=== PATIENT | female | born 1935 | race Caucasian/White ===

== ENCOUNTER 2016-07-03 22:49 | Inpatient (IN) | payer MEDICARE, OTHER ==
[2016-07-03] MEDS ORDERED: IPRATROPIUM/ALBUTEROL 0.5-2.5 MG/3 ML AMPUL NEB ONE (22:57)
[2016-07-03] MEDS: MAGNESIUM SULFATE/D5W 100 ML IV SCH ×2 (23:02→23:22)
--- NOTE | 2016-07-03 23:14 | ER Document Report ---
ED General - General Chief Complaint: Shortness Of Breath Stated Complaint: DIFFICULTY BREATHING Time Seen by Provider: 07/03/16 22:56 Notes: Patient is an 81-year-old female presents for complaint of difficulty breathing. Patient has a history of lung cancer as well as COPD. Patient is working very hard to breathe and unable to speak. No history is obtainable from her. Paramedics gave her Solu-Medrol as well as DuoNeb treatments. TRAVEL OUTSIDE OF THE [place] IN LAST 30 DAYS: No - Related Data Allergies/Adverse Reactions: Sulfa (Sulfonamide Antibiotics) Allergy (Verified 07/04/16 00:47) Past Medical History - Social History Smoking Status: Former Smoker Frequency of alcohol use: None Drug Abuse: None Family History: Reviewed & Not Pertinent Review of Systems - Review of Systems -: Yes ROS unobtainable due to patient's medical condition - Patient is unable to speak due to distress. Physical Exam - Vital signs Vitals: Temp Pulse Resp BP Pulse Ox 98.5 F 142 H 30 H 171/85 H 94 07/03/16 22:52 07/03/16 22:52 07/03/16 22:52 07/03/16 22:52 07/03/16 22:52 - Notes Notes: General Appearance: Well nourished, alert, cooperative, moderate to severe acute distress, no obvious discomfort. Vitals: reviewed, See vital signs table. Head: no swelling or tenderness to the head Eyes: PERRL, EOMI, Conjuctiva clear Mouth: No decreasd moisture Throat: No tonsillar inflammation, No airway obstruction, No lymphadenopathy Neck: Supple, no neck tenderness, No thyromegaly Lungs: Diffuse wheezing, No rales, diffuse rhonci, No accessory muscle use, fair air exchange bilaterally. Heart: Tachycardic rate, Regular rythm, No murmur, no rub Abdomen: Normal BS, soft, No rigidity, No abdominal tenderness, No guarding, no rebound, no abdominal masses, no organomegaly Extremities: strength 5/5 in all extremities, good pulses in all extremities, no swelling or tenderness in the extremities, no edema. Skin: warm, dry, appropriate color, no rash Neuro: Awake and alert. Does follow commands. Is able to move her extremities without difficulty. Course - Re-evaluation Re-evalutation: 07/03/16 23:39 Patient's daughter is now at bedside. I did speak to her at length about the possibility of need for intubation. I did talk to her about whether or not patient is DO NOT RESUSCITATE full code. Current medications full code. I informed her that the patient is intubated who is a chance we would not be able to wean her off the ventilator being her history of poor lung disease. Also informed her that the patient is already fatigued appearing and dizziness working hard to breathe and therefore she may without intubation. The daughter seems understanding of this and requests to have time to speak with her brother about what their wishes are for the patient. 07/04/16 00:20 I spoke with the patient's son as well. After speaking with the patient's son he wants to speak with the daughter again. Patient's is like asking back with a CO2 of 101. We will repeated to see if the BiPAP is helping this at all. Patient's troponin is also can back elevated. Patient also appears to be in atrial flutter on the monitor and now. She is also developing some hypotension. I will give her IV fluid bolus. I will repeat EKG to confirm that this is flutter. Once all this comes back I will try and speak with family to see exactly how far they want to take her care at this time. 07/04/16 00:57 Patient's ABGs improving. She is now much more awake. She is actually talking and answering questions appropriate. Her respiratory status is improving. I have not yet given her Cardizem for the atrial flutter because her blood pressure still only in the 90s systolic. We'll give her another fluid bolus to see if we can increase her blood pressure prior to trying the Cardizem. At this time I would like to avoid cardioversion if possible as I fear the patient may not tolerate sedation well to be cardioverted. 07/04/16 00:59 07/04/16 01:51 Patient continues to improve. Her heart rate is slowly improving. She continues to go between since tachycardia, A. fib, and a flutter on a monitor. Her heart rate is now more in the 1 teens. This is an improvement from when she was in the 140s earlier. Her blood pressure is improved after the fluid boluses. She does have an elevated troponin. I did talk to the patient's daughter at length about this. I informed her that this most likely is signs of some damage to the heart which is probably related to her early hypoxia. I told her could also be caused by her heart attack this is less likely. I informed her that definitive test to rule this out would be a heart catheter which would have to transfer. I did explain the procedure to her and the risks of it. Patient's daughter says that the patient would not want something like that done. They prefer not to have a heart catheter and preferred to not be transferred out. I think that is an appropriate decision at this time being that she or has severe underlying disease and a cardiac stent with most likely not improve her quality of life or prolong her life a significant amount of time. 07/04/16 02:50 - Vital Signs Vital signs: Temp Pulse Resp BP Pulse Ox 98.5 F 142 H 28 H 126/72 H 100 07/03/16 22:52 07/03/16 22:52 07/04/16 05:31 07/04/16 05:31 07/04/16 05:31 - Laboratory Result Diagrams: 07/03/16 23:26 07/03/16 23:26 Laboratory results interpreted by me: 07/03/16 07/03/16 07/03/16 23:26 23:26 23:26 RBC 3.33 L Hgb 8.8 L Hct 29.0 L MCH 26.5 L MCHC 30.5 L RDW 19.7 H VBG pH 7.17 L* VBG pCO2 101.8 H* VBG HCO3 36.5 H Sodium 132.7 L Potassium 5.7 H Chloride 89 L Carbon Dioxide 32 H BUN 30 H Est GFR ( Amer) 55 L Est GFR (Non-Af Amer) 45 L Glucose 184 H AST 54 H Alkaline Phosphatase 128 H 07/04/16 00:25 RBC Hgb Hct MCH MCHC RDW VBG pH 7.26 L VBG pCO2 73.5 H* VBG HCO3 32.5 H Sodium Potassium Chloride Carbon Dioxide BUN Est GFR ( Amer) Est GFR (Non-Af Amer) Glucose AST Alkaline Phosphatase - EKG Interpretation by Me Additional EKG results interpreted by me: 07/03/16 23:13 EKG is reviewed and interpreted by me. EKG shows sinus tachycardia with rate [address] segment elevation or depression. No T-wave inversions. VA interval, QRS duration are within normal range. QTC intervals prolonged. No old EKG available for comparison at this time. 07/04/16 00:53 EKG #2 is reviewed and interpreted by me. EKG shows a flutter with 2:[address] segment elevation or depression. Chart are as duration QTC intervals are within normal range. - Transfer of Care Notes: 07/04/16 05:45 Patient's breathing and blood gas to improve with BiPAP. As my discussion with the daughter and son no like to try to avoid intubation as the patient has very poor lung function and would be hard to wean off the ventilator if she was ever intubated. She does have elevated troponin. I did talk to the daughter about performing a cardiac catheter in transfer for that. I did talk to her about the procedure. At this time patient has multiple comorbid disease including end -stage cancer and therefore cardiac catheterization and intervention cardiac treatment most likely is appropriate. Daughter is understanding of this and agrees with this and does not want her to be transferred to an outside facility. I did speak with the hospitalist who agrees to admit the patient. Dictation of this chart was performed using voice recognition software; therefore, there may be some unintended grammatical errors. Discharge - Discharge Clinical Impression: Respiratory distress, Elevated troponin COPD (chronic obstructive pulmonary disease) Qualifiers: COPD type: COPD with acute exacerbation Qualified Code(s): J44.1 - Chronic obstructive pulmonary disease with (acute) exacerbation Pneumonia Qualifiers: Pneumonia type: due to unspecified organism Laterality: left Lung location: unspecified part of lung Qualified Code(s): J18.9 - Pneumonia, unspecified organism Atrial flutter Qualifiers: Atrial flutter type: unspecified Qualified Code(s): I48.92 - Unspecified atrial flutter Admitting Provider: Hospitalist Unit Admitted: [facility]
--- NOTE | 2016-07-03 23:40 | EKG REPORT ---
SEVERITY:- ABNORMAL ECG - A FLUTTER WITH 2:1 CONDUCTION MIKE, CONSIDER BIATRIAL ABNORMALITIES BORDERLINE LEFT AXIS DEVIATION LOW VOLTAGE IN FRONTAL LEADS NONSPECIFIC T ABNORMALITIES, INFERIOR LEADS ST ELEVATION, CONSIDER INFERIOR INJURY BORDERLINE PROLONGED QT INTERVAL : Confirmed by: Yariel Dominguez 03-Jul-2016 23:39:29
[2016-07-03] MEDS ORDERED: LORAZEPAM INJ 2 MG/1 ML VIAL IV ONE (23:42)
[2016-07-03] MEDS ORDERED: DOXYCYCLINE HYCLATE 100 MG TABLET PO ONE (23:42)
[2016-07-03 23:46] LABS: ABSOLUTE LYMPHOCYTES (AUTO) 2.6 10^3/uL (0.5-4.7); ABSOLUTE MONOCYTES (AUTO) 0.9 10^3/uL (0.1-1.4); ABSOLUTE NEUT (AUTO) 4.5 10^3/uL (1.7-8.2); BASOPHILS % (AUTO) 0.6 % (0-2); EOSINOPHILS % (AUTO) 0.4 % (0-6); HEMOGLOBIN 8.8 g/dL (12.0-15.5); HGB HCT DIFFERENCE -2.6; LYMPHOCYTES % (AUTO) 31.9 % (13-45); MEAN CORPUSCULAR HEMOGLOBIN 26.5 pg (27.0-33.4); MEAN CORPUSCULAR HGB CONC 30.5 g/dL (32.0-36.0); MEAN CORPUSCULAR VOLUME 87 fl (80-97); MONOCYTES % (AUTO) 10.9 % (3-13); RED BLOOD COUNT 3.33 10^6/uL (3.72-5.28); RED CELL DISTRIBUTION WIDTH 19.7 % (11.5-14.0); SEGMENTED NEUTROPHILS % (AUTO) 56.2 % (42-78); WHITE BLOOD COUNT 8.1 10^3/uL (4.0-10.5)
[2016-07-03 23:53] LABS: VENOUS BLOOD BASE EXCESS 5.8 mmol/L; VENOUS BLOOD HCO3 36.5 mmol/L (20-32)
[2016-07-03 23:56] LABS: VENOUS BLOOD PCO2 101.8 mmHg (35-63); VENOUS BLOOD PH 7.17 (7.30-7.42)
[2016-07-04 00:04] LABS: ALANINE AMINOTRANSFERASE 38 U/L (9-52); ALBUMIN 3.9 g/dL (3.5-5.0); ALKALINE PHOSPHATASE 128 U/L (38-126); ANION GAP 12 (5-19); ASPARTATE AMINO TRANSFERASE 54 U/L (14-36); BILIRUBIN,DIRECT 0.4 mg/dL (0.0-0.4); BILIRUBIN,TOTAL 0.4 mg/dL (0.2-1.3); BLOOD UREA NITROGEN 30 mg/dL (7-20); CALCIUM 9.4 mg/dL (8.4-10.2); CARBON DIOXIDE 32 mmol/L (22-30); CHLORIDE 89 mmol/L (98-107); CREATINE KINASE 46 U/L (30-135); CREATININE RESULT 1.15 mg/dL (0.52-1.25); GLUCOSE 184 mg/dL (75-110); POTASSIUM 5.7 mmol/L (3.6-5.0); SODIUM 132.7 mmol/L (137-145); TOTAL PROTEIN 7.6 g/dL (6.3-8.2)
[2016-07-04 00:14] LABS: CREATINE KINASE MB 1.98 ng/mL (<4.55)
[2016-07-04 00:17] LABS: TROPONIN I 0.101 ng/mL
[2016-07-04] MEDS ORDERED: PIPERACILLIN/TAZOBACTAM 3.375 GM VIAL IV ONE (00:18)
[2016-07-04] MEDS ORDERED: VANCOMYCIN HCL INJ 1000 MG VIAL IV ONE (00:19)
[2016-07-04 00:42] LABS: VENOUS BLOOD BASE EXCESS 4.2 mmol/L; VENOUS BLOOD HCO3 32.5 mmol/L (20-32); VENOUS BLOOD PH 7.26 (7.30-7.42)
[2016-07-04 00:44] LABS: VENOUS BLOOD PCO2 73.5 mmHg (35-63)
[2016-07-04] MEDS ORDERED: NORMAL SALINE 1000 ML 1,000 ML IV ONE ×3 (00:57→04:05)
[2016-07-04] MEDS ORDERED: GUAIFENESIN SYRP 200 MG/10 ML UDC PO PRN (04:15)
[2016-07-04] MEDS ORDERED: ACETAMINOPHEN 325 MG TABLET PO PRN (04:15)
[2016-07-04] MEDS ORDERED: LACTULOSE SYRUP 20 GM/30 ML UDCUP PO ONE (04:30)
[2016-07-04] MEDS ORDERED: HYDROCORTISONE SOD SUCCINATE INJ/PF 100 MG/2 ML SDV IV ONE (04:30)
[2016-07-04] MEDS ORDERED: SODIUM POLYSTYRENE SULFONATE 15 GM/60 ML PO ONE (04:30)
[2016-07-04] MEDS: HEPARIN SOD (PORCINE) 5,000 UNIT/ML 1 ML SYRINGE SUBCUT SCH ×3 (05:17→22:00)
[2016-07-04] MEDS: DILTIAZEM HCL 30 MG TABLET PO SCH ×3 (05:19→17:02)
--- NOTE | 2016-07-04 06:36 | PDOC H&P ---
History of Present Illness Admission Date/PCP: 07/04/16 04:15 Patient complains of: Shortness of breath History of Present Illness: KACEY HUANG is a 81 year old female with a past medical history of stage IV lung cancer without chemotherapy secondary to debility, COPD with home oxygen dependence. Brought to the emergency room with unclear duration of hypotension, atrial flutter and severe respiratory distress. Unable to provide history given acute on chronic respiratory failure. She is empirically started on BiPAP PCO2 of greater than 100. She started on empiric antibiotics and IV fluid challenge referred to the hospitalist for admission. Past Medical History Pulmonary Medical History: Reports: Chronic Obstructive Pulmonary Disease (COPD) , Other - Stage IV Lung cancer Malignancy Medical History: Reports: Lung Cancer - Stage IV lung cancer Past Surgical History Past Surgical History: Reports: Other - Unobtainable Social History Information Source: Relative, Emergency Med Personnel Lives with: Family Smoking Status: Former Smoker - Advance Directive Resuscitation Status: Full Code Family History Family History: Other - Unobtainable Parental Family History Reviewed: No - unobtainable Children Family History Reviewed: No Sibling(s) Family History Reviewed.: No Medication/Allergy Home Medications: Ascorbic Acid [Vitamin C 500 mg Tablet] 500 mg PO BID 07/04/16 Aspirin [Aspirin 81 mg Chewable Tablet] 81 mg PO DAILY 07/04/16 Atorvastatin Calcium [Lipitor 80 mg Tablet] 80 mg PO QHS 07/04/16 Atorvastatin Calcium [Lipitor 80 mg Tablet] 80 mg PO QHS 07/04/16 Bisacodyl [Women's Laxative] 5 mg PO HSP PRN 07/04/16 Carvedilol [Coreg 3.125 mg Tablet] 3.125 mg PO BID 07/04/16 Esomeprazole Magnesium [Nexium] 20 mg PO DAILY 07/04/16 Ferrous Sulfate [Ferrousul] 325 mg PO BID 07/04/16 Furosemide [Lasix] 20 mg PO DAILY 07/04/16 Lisinopril 10 mg PO DAILY 07/04/16 Nifedipine [Nifedipine ER] 30 mg PO DAILY 07/04/16 Sertraline HCl [Zoloft] 25 mg PO DAILY 07/04/16 Theophylline Anhydrous [Theophylline] 400 mg PO BID 07/04/16 Allergies/Adverse Reactions: Sulfa (Sulfonamide Antibiotics) Allergy (Verified 07/04/16 00:47) Review of Systems ROS unobtainable: Due to mental status - Severe respiratory distress Physical Exam Vital Signs: Temp Pulse Resp BP Pulse Ox 98.5 F 142 H 14 126/73 H 100 07/03/16 22:52 07/03/16 22:52 07/04/16 06:16 07/04/16 06:16 07/04/16 05:46 General appearance: PRESENT: severe distress, thin Head exam: PRESENT: atraumatic, normocephalic Eye exam: PRESENT: conjunctiva pink, EOMI, PERRLA. ABSENT: scleral icterus Ear exam: PRESENT: bleeding Mouth exam: PRESENT: moist, tongue midline Neck exam: ABSENT: carotid bruit, JVD, lymphadenopathy, thyromegaly Respiratory exam: PRESENT: accessory muscle use, crackles, prolonged expiratory phas, retraction, rhonchi, symmetrical, tachypnea. ABSENT: chest wall tenderness, stridor Cardiovascular exam: PRESENT: RRR. ABSENT: diastolic murmur, rubs, systolic murmur Pulses: PRESENT: normal dorsalis pedis pul GI/Abdominal exam: PRESENT: distended, hypoactive bowel sounds, normal bowel sounds, soft. ABSENT: guarding, mass, organolmegaly, rebound, tenderness Rectal exam: PRESENT: deferred Extremities exam: PRESENT: full ROM. ABSENT: calf tenderness, clubbing, pedal edema Neurological exam: PRESENT: altered, CN II-XII grossly intact, other - Obtunded. ABSENT: alert, awake, oriented to person Psychiatric exam: PRESENT: other - Obtunded. ABSENT: homicidal ideation, suicidal ideation Skin exam: PRESENT: dry, intact, warm. ABSENT: cyanosis, rash Results Impressions: Chest X-Ray 07/03/16 22:56 IMPRESSION: Left basilar airspace disease -effusion. Assessment & Plan - Diagnosis (1) Pneumonia Qualifiers: Pneumonia type: due to unspecified organism Laterality: left Lung location: unspecified part of lung Qualified Code(s): J18.9 - Pneumonia, unspecified organism Is this a current diagnosis for this admission?: YesPlan: Pneumonia care set, empiric antibiotics follow-up CBC, chemistry and blood culture (2) Atrial flutter Qualifiers: Atrial flutter type: unspecified Qualified Code(s): I48.92 - Unspecified atrial flutter Is this a current diagnosis for this admission?: YesPlan: Patient is on nifedipine at home will initiate IV Cardizem and transition to by mouth as tolerated (3) COPD (chronic obstructive pulmonary disease) Qualifiers: COPD type: COPD with acute exacerbation Qualified Code(s): J44.1 - Chronic obstructive pulmonary disease with (acute) exacerbation Is this a current diagnosis for this admission?: YesPlan: Complicated by end-stage lung cancer, flutter valve, incentive spirometry, albuterol and Atrovent, supplemental oxygen (4) Elevated troponin Is this a current diagnosis for this admission?: YesPlan: Complicated by the above obtain serial cardiac enzymes for trending though is not a candidate for invasive intervention - Time Time Spent: 50 to 70 Minutes - Inpatient Certification Medical Necessity: Need Close Monitoring Due to Risk of Patient Decompensation
[2016-07-04] MEDS: IPRATROPIUM/ALBUTEROL 0.5-2.5 MG/3 ML AMPUL NEB SCH ×3 (08:27→19:54)
[2016-07-04 09:02] LABS: CREATINE KINASE MB 5.39 ng/mL (<4.55)
[2016-07-04 09:07] LABS: TROPONIN I 0.166 ng/mL
[2016-07-04] MEDS: CEFTRIAXONE 1 GM/D5W RTU 50 ML IV SCH (09:53)
[2016-07-04] MEDS: GUAIFENESIN 600 MG TABLET.SA PO SCH ×2 (09:57→21:59)
[2016-07-04] MEDS: AZITHROMYCIN 500 MG in DEXTROSE 5%-WATER 250 ML IV SCH (10:27)
--- NOTE | 2016-07-04 13:10 | PDOC PROGRESS REPORT ---
Subjective Progress Note for:: 07/04/16 Subjective:: Complains of a productive cough. Physical Exam Vital Signs: Temp Pulse Resp BP Pulse Ox 98 F 138 H 24 H 122/74 98 07/04/16 11:51 07/04/16 11:51 07/04/16 11:59 07/04/16 11:51 07/04/16 11:59 Intake & Output 07/03/16 07/04/16 07/05/16 06:59 06:59 06:59 Weight 57.7 kg General appearance: PRESENT: mild distress Eye exam: PRESENT: conjunctiva pink. ABSENT: scleral icterus Mouth exam: PRESENT: moist, tongue midline Neck exam: ABSENT: JVD Respiratory exam: PRESENT: rhonchi - Coarse rhonchi bilaterally.. ABSENT: rales , wheezes Cardiovascular exam: PRESENT: tachycardia. ABSENT: diastolic murmur, rubs, systolic murmur GI/Abdominal exam: PRESENT: normal bowel sounds, soft. ABSENT: distended, guarding, mass, organolmegaly, rebound, tenderness Extremities exam: ABSENT: calf tenderness, clubbing, pedal edema Neurological exam: PRESENT: alert, awake, oriented to person, oriented to place , oriented to time, oriented to situation, CN II-XII grossly intact. ABSENT: motor sensory deficit Psychiatric exam: PRESENT: appropriate affect Skin exam: PRESENT: dry, intact, warm. ABSENT: cyanosis, rash Results Laboratory Results: 07/04/16 07/04/16 07:32 07:32 Creatine Kinase 94 CK-MB (CK-2) 5.39 H Troponin I 0.166 Impressions: Chest X-Ray 07/03/16 22:56 IMPRESSION: Left basilar airspace disease -effusion. Assessment & Plan - Diagnosis (1) Respiratory distress Is this a current diagnosis for this admission?: YesPlan: Patient has respiratory distress most likely secondary to the pneumonia and the atrial flutter. We'll continue with IV antibiotics, nebulizers, steroids. (2) Pneumonia Qualifiers: Pneumonia type: due to unspecified organism Laterality: left Lung location: unspecified part of lung Qualified Code(s): J18.9 - Pneumonia, unspecified organism Is this a current diagnosis for this admission?: YesPlan: Community acquired pneumonia most likely gram-positive cocci. We'll treat with Rocephin and Zithromax. (3) Atrial flutter Qualifiers: Atrial flutter type: unspecified Qualified Code(s): I48.92 - Unspecified atrial flutter Is this a current diagnosis for this admission?: YesPlan: Patient is rate controlled at this time. (4) COPD (chronic obstructive pulmonary disease) Qualifiers: COPD type: COPD with acute exacerbation Qualified Code(s): J44.1 - Chronic obstructive pulmonary disease with (acute) exacerbation Is this a current diagnosis for this admission?: YesPlan: We'll continue with nebulizers. (5) Elevated troponin Is this a current diagnosis for this admission?: YesPlan: Positive troponins. The patient's troponins are elevated most likely due to her acute illness and not secondary to a non-STEMI. Will keep her on aspirin. (6) Lung cancer Is this a current diagnosis for this admission?: YesPlan: Patient has stage IV lung cancer. - Time Time Spent with patient: 25-34 minutes - Inpatient Certification Medical Necessity: Need Close Monitoring Due to Risk of Patient Decompensation, Need for IV Antibiotics
--- NOTE | 2016-07-04 13:56 | EKG REPORT ---
SEVERITY:- ABNORMAL ECG - ATRIAL FLUTTER WITH 2:1 AV BLOCK VENTRICULAR PREMATURE COMPLEX BORDERLINE RIGHT AXIS DEVIATION LOW VOLTAGE IN FRONTAL LEADS NONSPECIFIC T ABNORMALITIES, ANT-LAT LEADS : Confirmed by: Yariel Dominguez 04-Jul-2016 13:55:33
[2016-07-04 14:06] LABS: CREATINE KINASE MB 5.95 ng/mL (<4.55); TROPONIN I 0.182 ng/mL
[2016-07-04] MEDS: ALPRAZOLAM 0.25 MG TABLET PO PRN (18:34)
[2016-07-04 20:45] LABS: CREATINE KINASE MB 5.3 ng/mL (<4.55)
[2016-07-04 20:55] LABS: TROPONIN I 0.182 ng/mL
[2016-07-05] MEDS: DILTIAZEM HCL 30 MG TABLET PO SCH ×4 (00:55→17:43)
[2016-07-05] MEDS: IPRATROPIUM/ALBUTEROL 0.5-2.5 MG/3 ML AMPUL NEB SCH ×4 (02:00→19:55)
[2016-07-05] MEDS: HEPARIN SOD (PORCINE) 5,000 UNIT/ML 1 ML SYRINGE SUBCUT SCH ×3 (06:22→22:27)
[2016-07-05 07:44] LABS: ABSOLUTE LYMPHOCYTES (AUTO) 1.1 10^3/uL (0.5-4.7); ABSOLUTE MONOCYTES (AUTO) 1.1 10^3/uL (0.1-1.4); BASOPHILS % (AUTO) 0.4 % (0-2); HEMATOCRIT 23.8 % (36.0-47.0); LYMPHOCYTES % (AUTO) 15.6 % (13-45); MEAN CORPUSCULAR HEMOGLOBIN 26.7 pg (27.0-33.4); MEAN CORPUSCULAR HGB CONC 31.9 g/dL (32.0-36.0); MEAN CORPUSCULAR VOLUME 84 fl (80-97); MONOCYTES % (AUTO) 15.3 % (3-13); RED BLOOD COUNT 2.84 10^6/uL (3.72-5.28); RED CELL DISTRIBUTION WIDTH 19.9 % (11.5-14.0); SEGMENTED NEUTROPHILS % (AUTO) 68.7 % (42-78); WHITE BLOOD COUNT 7.2 10^3/uL (4.0-10.5)
[2016-07-05 07:54] LABS: ANION GAP 12 (5-19); BLOOD UREA NITROGEN 39 mg/dL (7-20); CALCIUM 8.6 mg/dL (8.4-10.2); CARBON DIOXIDE 28 mmol/L (22-30); CHLORIDE 95 mmol/L (98-107); CREATININE RESULT 1.54 mg/dL (0.52-1.25); GLUCOSE 96 mg/dL (75-110); POTASSIUM 4.2 mmol/L (3.6-5.0); SODIUM 135.4 mmol/L (137-145)
[2016-07-05 08:04] LABS: HEMOGLOBIN 7.6 g/dL (12.0-15.5)
[2016-07-05] MEDS: ALPRAZOLAM 0.25 MG TABLET PO PRN ×2 (08:56→17:42)
[2016-07-05] MEDS: AZITHROMYCIN 500 MG in DEXTROSE 5%-WATER 250 ML IV SCH (09:53)
[2016-07-05] MEDS: CEFTRIAXONE 1 GM/D5W RTU 50 ML IV SCH (09:55)
[2016-07-05] MEDS: GUAIFENESIN 600 MG TABLET.SA PO SCH ×2 (09:55→22:48)
--- NOTE | 2016-07-05 10:53 | PDOC PROGRESS REPORT ---
Subjective Progress Note for:: 07/05/16 Subjective:: Complains of a productive cough. States she would like to go home. Physical Exam Vital Signs: Temp Pulse Resp BP Pulse Ox 98.3 F 109 H 20 137/82 H 99 07/05/16 07:30 07/05/16 08:14 07/05/16 08:14 07/05/16 07:30 07/05/16 08:14 Intake & Output 07/04/16 07/05/16 07/06/16 06:59 06:59 06:59 Intake Total 408 Output Total 100 Balance 308 Weight 56.9 kg General appearance: PRESENT: mild distress Eye exam: PRESENT: conjunctiva pink. ABSENT: scleral icterus Mouth exam: PRESENT: moist, tongue midline Neck exam: ABSENT: JVD Respiratory exam: PRESENT: rhonchi - Coarse rhonchi bilaterally.. ABSENT: rales , wheezes - Few scattered expiratory wheezes Cardiovascular exam: PRESENT: RRR. ABSENT: diastolic murmur, rubs, systolic murmur GI/Abdominal exam: PRESENT: normal bowel sounds, soft. ABSENT: distended, guarding, mass, organolmegaly, rebound, tenderness Extremities exam: ABSENT: calf tenderness, clubbing, pedal edema Neurological exam: PRESENT: alert, awake, oriented to person, oriented to place , oriented to time, oriented to situation, CN II-XII grossly intact. ABSENT: motor sensory deficit Psychiatric exam: PRESENT: appropriate affect Skin exam: PRESENT: dry, intact, warm. ABSENT: cyanosis, rash Results Laboratory Results: 07/05/16 06:35 07/05/16 06:35 07/05/16 07/05/16 06:35 06:35 WBC 7.2 RBC 2.84 L Hgb 7.6 L Hct 23.8 L MCV 84 MCH 26.7 L MCHC 31.9 L RDW 19.9 H Plt Count 288 Seg Neutrophils % 68.7 Lymphocytes % 15.6 Monocytes % 15.3 H Eosinophils % 0.0 Basophils % 0.4 Absolute Neutrophils 5.0 Absolute Lymphocytes 1.1 Absolute Monocytes 1.1 Absolute Eosinophils 0.0 Absolute Basophils 0.0 Sodium 135.4 L Potassium 4.2 Chloride 95 L Carbon Dioxide 28 Anion Gap 12 BUN 39 H Creatinine 1.54 H Est GFR ( Amer) 39 L Est GFR (Non-Af Amer) 32 L Glucose 96 Calcium 8.6 07/04/16 07/04/16 07/04/16 07:32 07:32 13:25 Creatine Kinase 94 101 CK-MB (CK-2) 5.39 H Troponin I 0.166 07/04/16 07/04/16 07/04/16 13:25 19:50 19:50 Creatine Kinase 108 CK-MB (CK-2) 5.95 H 5.30 H Troponin I 0.182 0.182 Impressions: Chest X-Ray 07/03/16 22:56 IMPRESSION: Left basilar airspace disease -effusion. Assessment & Plan - Diagnosis (1) Respiratory distress Is this a current diagnosis for this admission?: YesPlan: Patient has respiratory distress most likely secondary to the pneumonia and the atrial flutter. We'll continue with IV antibiotics, nebulizers, steroids. (2) Pneumonia Qualifiers: Pneumonia type: due to unspecified organism Laterality: left Lung location: unspecified part of lung Qualified Code(s): J18.9 - Pneumonia, unspecified organism Is this a current diagnosis for this admission?: YesPlan: Community acquired pneumonia most likely gram-positive cocci. We'll treat with Rocephin and Zithromax. (3) Atrial flutter Qualifiers: Atrial flutter type: unspecified Qualified Code(s): I48.92 - Unspecified atrial flutter Is this a current diagnosis for this admission?: YesPlan: Patient is rate controlled at this time. (4) COPD (chronic obstructive pulmonary disease) Qualifiers: COPD type: COPD with acute exacerbation Qualified Code(s): J44.1 - Chronic obstructive pulmonary disease with (acute) exacerbation Is this a current diagnosis for this admission?: YesPlan: We'll continue with nebulizers. (5) Elevated troponin Is this a current diagnosis for this admission?: YesPlan: Positive troponins. The patient's troponins are elevated most likely due to her acute illness. Will keep her on aspirin. (6) Lung cancer Is this a current diagnosis for this admission?: YesPlan: Patient has stage IV lung cancer. - Time Time Spent with patient: 25-34 minutes - Inpatient Certification Medical Necessity: Need for IV Antibiotics
[2016-07-06] MEDS: DILTIAZEM HCL 30 MG TABLET PO SCH ×5 (01:32→23:54)
[2016-07-06] MEDS: ALPRAZOLAM 0.25 MG TABLET PO PRN ×4 (01:32→22:53)
[2016-07-06] MEDS: IPRATROPIUM/ALBUTEROL 0.5-2.5 MG/3 ML AMPUL NEB SCH ×4 (02:04→19:55)
[2016-07-06 06:50] LABS: ABSOLUTE BASOPHILS # (AUTO) 0.1 10^3/uL (0.0-0.2); ABSOLUTE LYMPHOCYTES (AUTO) 0.9 10^3/uL (0.5-4.7); ABSOLUTE NEUT (AUTO) 4.4 10^3/uL (1.7-8.2); BASOPHILS % (AUTO) 1.4 % (0-2); EOSINOPHILS % (AUTO) 0.2 % (0-6); HEMATOCRIT 23.5 % (36.0-47.0); HGB HCT DIFFERENCE -1.3; LYMPHOCYTES % (AUTO) 14.1 % (13-45); MEAN CORPUSCULAR HEMOGLOBIN 26.7 pg (27.0-33.4); MEAN CORPUSCULAR HGB CONC 31.5 g/dL (32.0-36.0); MEAN CORPUSCULAR VOLUME 85 fl (80-97); MONOCYTES % (AUTO) 16.2 % (3-13); RED BLOOD COUNT 2.77 10^6/uL (3.72-5.28); RED CELL DISTRIBUTION WIDTH 19.8 % (11.5-14.0); SEGMENTED NEUTROPHILS % (AUTO) 68.1 % (42-78); WHITE BLOOD COUNT 6.4 10^3/uL (4.0-10.5)
[2016-07-06 06:58] LABS: HEMOGLOBIN 7.4 g/dL (12.0-15.5)
[2016-07-06 07:02] LABS: ANION GAP 10 (5-19); BLOOD UREA NITROGEN 39 mg/dL (7-20); CALCIUM 8.4 mg/dL (8.4-10.2); CARBON DIOXIDE 28 mmol/L (22-30); CHLORIDE 95 mmol/L (98-107); CREATININE RESULT 1.18 mg/dL (0.52-1.25); GLUCOSE 115 mg/dL (75-110); POTASSIUM 4.3 mmol/L (3.6-5.0)
[2016-07-06] MEDS: CEFTRIAXONE 1 GM/D5W RTU 50 ML IV SCH (09:33)
[2016-07-06] MEDS: GUAIFENESIN 600 MG TABLET.SA PO SCH ×2 (09:33→22:53)
[2016-07-06] MEDS: AZITHROMYCIN 500 MG in DEXTROSE 5%-WATER 250 ML IV SCH (09:34)
--- NOTE | 2016-07-06 10:08 | PDOC PROGRESS REPORT ---
Subjective Progress Note for:: 07/06/16 Subjective:: Complains of a productive cough. Hemoglobin has dropped some and will get blood transfusion today. Physical Exam Vital Signs: Temp Pulse Resp BP Pulse Ox 97.6 F 111 H 16 120/61 95 07/06/16 07:10 07/06/16 07:54 07/06/16 07:54 07/06/16 07:10 07/06/16 07:54 Intake & Output 07/05/16 07/06/16 07/07/16 06:59 06:59 06:59 Intake Total 408 822 Output Total 100 400 Balance 308 422 Weight 56.9 kg 57.5 kg General appearance: PRESENT: no acute distress Eye exam: PRESENT: conjunctiva pink. ABSENT: scleral icterus Ear exam: PRESENT: normal external ear exam Mouth exam: PRESENT: moist, tongue midline Neck exam: ABSENT: JVD Respiratory exam: PRESENT: rhonchi - Coarse rhonchi bilaterally.. ABSENT: rales , wheezes Cardiovascular exam: PRESENT: RRR. ABSENT: diastolic murmur, rubs, systolic murmur GI/Abdominal exam: PRESENT: normal bowel sounds, soft. ABSENT: distended, guarding, mass, organolmegaly, rebound, tenderness Extremities exam: ABSENT: calf tenderness, clubbing, pedal edema Neurological exam: PRESENT: alert, awake, oriented to person, oriented to place , oriented to time, oriented to situation, CN II-XII grossly intact. ABSENT: motor sensory deficit Psychiatric exam: PRESENT: appropriate affect Skin exam: PRESENT: dry, intact, warm. ABSENT: cyanosis, rash Results Laboratory Results: 07/06/16 06:37 07/06/16 06:37 07/06/16 07/06/16 06:37 06:37 WBC 6.4 RBC 2.77 L Hgb 7.4 L Hct 23.5 L MCV 85 MCH 26.7 L MCHC 31.5 L RDW 19.8 H Plt Count 257 Seg Neutrophils % 68.1 Lymphocytes % 14.1 Monocytes % 16.2 H Eosinophils % 0.2 Basophils % 1.4 Absolute Neutrophils 4.4 Absolute Lymphocytes 0.9 Absolute Monocytes 1.0 Absolute Eosinophils 0.0 Absolute Basophils 0.1 Sodium 133.0 L Potassium 4.3 Chloride 95 L Carbon Dioxide 28 Anion Gap 10 BUN 39 H Creatinine 1.18 Est GFR ( Amer) 53 L Est GFR (Non-Af Amer) 44 L Glucose 115 H Calcium 8.4 07/04/16 07/04/16 07/04/16 07:32 07:32 13:25 Creatine Kinase 94 101 CK-MB (CK-2) 5.39 H Troponin I 0.166 07/04/16 07/04/16 07/04/16 13:25 19:50 19:50 Creatine Kinase 108 CK-MB (CK-2) 5.95 H 5.30 H Troponin I 0.182 0.182 Impressions: Chest X-Ray 07/03/16 22:56 IMPRESSION: Left basilar airspace disease -effusion. Assessment & Plan - Diagnosis (1) Respiratory distress Is this a current diagnosis for this admission?: YesPlan: Patient has respiratory distress most likely secondary to the pneumonia and the atrial flutter. We'll continue with IV antibiotics, nebulizers, steroids. (2) Pneumonia Qualifiers: Pneumonia type: due to unspecified organism Laterality: left Lung location: unspecified part of lung Qualified Code(s): J18.9 - Pneumonia, unspecified organism Is this a current diagnosis for this admission?: YesPlan: Community acquired pneumonia most likely gram-positive cocci. Cultures are negative so far. We'll treat with Rocephin and Zithromax. (3) Atrial flutter Qualifiers: Atrial flutter type: unspecified Qualified Code(s): I48.92 - Unspecified atrial flutter Is this a current diagnosis for this admission?: YesPlan: Patient is rate controlled at this time. (4) COPD (chronic obstructive pulmonary disease) Qualifiers: COPD type: COPD with acute exacerbation Qualified Code(s): J44.1 - Chronic obstructive pulmonary disease with (acute) exacerbation Is this a current diagnosis for this admission?: YesPlan: We'll continue with nebulizers. (5) Elevated troponin Is this a current diagnosis for this admission?: YesPlan: Positive troponins. The patient's troponins are elevated most likely due to her acute illness. Will keep her on aspirin. (6) Lung cancer Is this a current diagnosis for this admission?: YesPlan: Patient has stage IV lung cancer. (7) Anemia Is this a current diagnosis for this admission?: YesPlan: Patient appears to have iron deficiency anemia and will transfuse 2 units of packed red blood cells today. - Time Time Spent with patient: 25-34 minutes - Inpatient Certification Medical Necessity: Need Close Monitoring Due to Risk of Patient Decompensation, Need for IV Antibiotics
[2016-07-06] MEDS ORDERED: FUROSEMIDE INJ/PF 20 MG/2 ML SDV IV ONE ×2 (10:30→14:45)
[2016-07-06] MEDS ORDERED: FUROSEMIDE INJ/PF 40 MG/4 ML SDV ONE (14:39)
[2016-07-06 20:27] LABS: HEMATOCRIT 30.9 % (36.0-47.0); HGB HCT DIFFERENCE -1.2; MEAN CORPUSCULAR HEMOGLOBIN 26.9 pg (27.0-33.4); MEAN CORPUSCULAR HGB CONC 31.9 g/dL (32.0-36.0); MEAN CORPUSCULAR VOLUME 85 fl (80-97); RED BLOOD COUNT 3.66 10^6/uL (3.72-5.28); RED CELL DISTRIBUTION WIDTH 20.4 % (11.5-14.0)
[2016-07-06 20:33] LABS: HEMOGLOBIN 9.9 g/dL (12.0-15.5)
[2016-07-06] MEDS: HEPARIN SOD (PORCINE) 5,000 UNIT/ML 1 ML SYRINGE SUBCUT SCH (22:56)
[2016-07-07] MEDS: IPRATROPIUM/ALBUTEROL 0.5-2.5 MG/3 ML AMPUL NEB SCH ×2 (01:39→08:00)
[2016-07-07] MEDS: ALPRAZOLAM 0.25 MG TABLET PO PRN ×3 (05:33→22:25)
[2016-07-07] MEDS: DILTIAZEM HCL 30 MG TABLET PO SCH (05:34)
[2016-07-07 06:54] LABS: ABSOLUTE EOSINOPHILS # (AUTO) 0.1 10^3/uL (0.0-0.6); ABSOLUTE LYMPHOCYTES (AUTO) 0.6 10^3/uL (0.5-4.7); BASOPHILS % (AUTO) 0.4 % (0-2); EOSINOPHILS % (AUTO) 0.8 % (0-6); HEMATOCRIT 30.6 % (36.0-47.0); HEMOGLOBIN 9.8 g/dL (12.0-15.5); HGB HCT DIFFERENCE -1.2; LYMPHOCYTES % (AUTO) 9.3 % (13-45); MEAN CORPUSCULAR HEMOGLOBIN 27.1 pg (27.0-33.4); MEAN CORPUSCULAR VOLUME 85 fl (80-97); MONOCYTES % (AUTO) 14.9 % (3-13); RED BLOOD COUNT 3.62 10^6/uL (3.72-5.28); SEGMENTED NEUTROPHILS % (AUTO) 74.6 % (42-78); WHITE BLOOD COUNT 6.6 10^3/uL (4.0-10.5)
[2016-07-07 07:10] LABS: ANION GAP 8 (5-19); BLOOD UREA NITROGEN 35 mg/dL (7-20); CALCIUM 8.6 mg/dL (8.4-10.2); CARBON DIOXIDE 31 mmol/L (22-30); CHLORIDE 95 mmol/L (98-107); CREATININE RESULT 1.35 mg/dL (0.52-1.25); GLUCOSE 120 mg/dL (75-110); SODIUM 134.4 mmol/L (137-145)
[2016-07-07] MEDS: DOXYCYCLINE HYCLATE 100 MG TABLET PO SCH ×2 (09:11→22:24)
[2016-07-07] MEDS: ASCORBIC ACID 500 MG TABLET PO SCH ×2 (09:11→18:21)
[2016-07-07] MEDS: SERTRALINE HCL 50 MG TABLET PO SCH (09:11)
[2016-07-07] MEDS: GUAIFENESIN 600 MG TABLET.SA PO SCH ×2 (09:11→22:24)
[2016-07-07] MEDS: FUROSEMIDE 20 MG TABLET PO SCH (09:12)
[2016-07-07] MEDS: DILTIAZEM HCL 120 MG CAP.SR.24H PO SCH (09:12)
[2016-07-07] MEDS: CARVEDILOL 6.25 MG TABLET PO SCH ×2 (09:12→22:25)
[2016-07-07] MEDS: ASPIRIN 81 MG TABLET, ENT COATED PO SCH (09:12)
[2016-07-07] MEDS: CYANOCOBALAMIN (VITAMIN B-12) 1,000 MCG TABLET PO SCH (09:12)
[2016-07-07] MEDS: FERROUS SULFATE 325 MG TABLET PO SCH ×2 (09:13→18:21)
[2016-07-07] MEDS ORDERED: (PENDING PHARMACY ID) (Ascorbic Acid [Vitamin C] 500 MG) PO SCH (10:00)
[2016-07-07] MEDS ORDERED: (PENDING PHARMACY ID) (Esomeprazole Magnesium [Nexium] 20 MG) PO SCH (10:00)
[2016-07-07] MEDS ORDERED: CARVEDILOL 3.125 MG TABLET PO SCH (10:00)
[2016-07-07] MEDS ORDERED: (PENDING PHARMACY ID) (Sertraline Hcl [Zoloft] 25 MG) PO SCH (10:00)
[2016-07-07] MEDS: IPRATROPIUM/ALBUTEROL 0.5-2.5 MG/3 ML AMPUL NEB PRN (14:41)
--- NOTE | 2016-07-07 15:53 | PDOC PROGRESS REPORT ---
Subjective Progress Note for:: 07/07/16 Subjective:: Patient has continued shortness of breath. Nursing states that she has very weak and requires [id number] assistance. Patient denies fever, chills, headache, new focal weakness, chest pain, abdominal pain, nausea, vomiting, diarrhea, constipation. Physical Exam Vital Signs: Temp Pulse Resp BP Pulse Ox 98.2 F 85 24 H 134/55 H 98 07/07/16 07:18 07/07/16 14:41 07/07/16 14:41 07/07/16 07:18 07/07/16 08:00 Intake & Output 07/06/16 07/07/16 07/08/16 06:59 06:59 06:59 Intake Total 822 2925 118 Output Total 400 Balance 422 2925 118 Weight 57.5 kg 58.9 kg GENERAL: Frail, elderly HEENT: Conjunctiva clear, nonicteric, moist mucous membranes, no JVD, midline trachea RESPIRATORY: Bilateral wheezes and rhonchi CARDIAC: Regular rate and rhythm, no murmurs/gallops/rubs ABDOMEN: Soft, nondistended, nontender, positive bowel sounds, no rebound, no guarding EXTREMETIES: No edema, cyanosis, clubbing NEUROLOGIC: Alert, oriented to person/place/time, CN's grossly intact, no focal deficits SKIN: No rash, wounds PSYCH: Depressed mood, flat affect Results Laboratory Results: 07/07/16 06:07 07/07/16 06:07 07/06/16 07/06/16 07/07/16 09:07 20:23 06:07 WBC 8.0 6.6 RBC 3.66 L 3.62 L Hgb 9.9 L D 9.8 L Hct 30.9 L 30.6 L MCV 85 85 MCH 26.9 L 27.1 MCHC 31.9 L 32.0 RDW 20.4 H 21.0 H Plt Count 261 229 Seg Neutrophils % 74.6 Lymphocytes % 9.3 L Monocytes % 14.9 H Eosinophils % 0.8 Basophils % 0.4 Absolute Neutrophils 5.0 Absolute Lymphocytes 0.6 Absolute Monocytes 1.0 Absolute Eosinophils 0.1 Absolute Basophils 0.0 Sodium Potassium Chloride Carbon Dioxide Anion Gap BUN Creatinine Est GFR ( Amer) Est GFR (Non-Af Amer) Glucose Calcium Blood Type A POSITIVE Antibody Screen NEGATIVE 07/07/16 06:07 WBC RBC Hgb Hct MCV MCH MCHC RDW Plt Count Seg Neutrophils % Lymphocytes % Monocytes % Eosinophils % Basophils % Absolute Neutrophils Absolute Lymphocytes Absolute Monocytes Absolute Eosinophils Absolute Basophils Sodium 134.4 L Potassium 4.0 Chloride 95 L Carbon Dioxide 31 H Anion Gap 8 BUN 35 H Creatinine 1.35 H Est GFR ( Amer) 46 L Est GFR (Non-Af Amer) 38 L Glucose 120 H Calcium 8.6 Blood Type Antibody Screen 07/04/16 07/04/16 07/04/16 07:32 07:32 13:25 Creatine Kinase 94 101 CK-MB (CK-2) 5.39 H Troponin I 0.166 07/04/16 07/04/16 07/04/16 13:25 19:50 19:50 Creatine Kinase 108 CK-MB (CK-2) 5.95 H 5.30 H Troponin I 0.182 0.182 Impressions: Chest X-Ray 07/03/16 22:56 IMPRESSION: Left basilar airspace disease -effusion. Assessment & Plan - Diagnosis (1) Acute and chronic respiratory failure with hypoxia Is this a current diagnosis for this admission?: YesPlan: Continue oxygen supplementation. Patient has home oxygen in place. (2) Pneumonia Qualifiers: Pneumonia type: due to unspecified organism Laterality: left Lung location: unspecified part of lung Qualified Code(s): J18.9 - Pneumonia, unspecified organism Is this a current diagnosis for this admission?: YesPlan: Discontinue IV Rocephin and IV azithromycin. Start oral doxycycline. Likely bacterial. (3) COPD (chronic obstructive pulmonary disease) Qualifiers: COPD type: COPD with acute exacerbation Qualified Code(s): J44.1 - Chronic obstructive pulmonary disease with (acute) exacerbation Is this a current diagnosis for this admission?: YesPlan: Start prednisone 40 mg daily. Continue duo nebs every 4 hours when necessary. (4) Lung cancer Is this a current diagnosis for this admission?: YesPlan: According to patient's daughter patient has been evaluated for bilateral lung masses by her primary care provider Dr. Dee and pulmonary medicine physician Dr. Blank Womack at [facility]. Patient had unsuccessful/nondiagnostic biopsy in decision was made to not pursue bronchoscopy secondary to poor clinical status and age. Decision was made to not pursue any treatment for this issue. Patient and family were told that she had stage IV lung malignancy, but it seemed to be the slow growing kind and not small cell lung cancer. Given these findings and patient's poor overall status secondary to advanced COPD and age she is appropriate for hospice. I have had this discussion with patient and patient's daughter who is at the bedside. They agree. They request [facility]. Hopefully we can arrange hospice services in the next 1-2 days of discharge patient home. (5) Anemia Is this a current diagnosis for this admission?: Yes (6) Atrial flutter Qualifiers: Atrial flutter type: unspecified Qualified Code(s): I48.92 - Unspecified atrial flutter Is this a current diagnosis for this admission?: Yes (7) Elevated troponin Is this a current diagnosis for this admission?: Yes (8) Chronic kidney disease, stage 3 Is this a current diagnosis for this admission?: Yes - Time Time Spent with patient: 35 or more minutes Anticipated discharge: Hospice Within: within 48 hours
[2016-07-07] MEDS ORDERED: PREDNISONE 20 MG TABLET PO ONE (17:00)
[2016-07-07] MEDS: ATORVASTATIN CALCIUM 80 MG TABLET PO SCH (22:25)
[2016-07-08] MEDS: ALPRAZOLAM 0.25 MG TABLET PO PRN ×2 (04:40→18:33)
[2016-07-08 05:09] LABS: ABSOLUTE LYMPHOCYTES (AUTO) 0.4 10^3/uL (0.5-4.7); ABSOLUTE MONOCYTES (AUTO) 0.2 10^3/uL (0.1-1.4); ABSOLUTE NEUT (AUTO) 6.2 10^3/uL (1.7-8.2); BASOPHILS % (AUTO) 0.1 % (0-2); EOSINOPHILS % (AUTO) 0.1 % (0-6); HEMATOCRIT 32.1 % (36.0-47.0); HEMOGLOBIN 10.1 g/dL (12.0-15.5); HGB HCT DIFFERENCE -1.8; LYMPHOCYTES % (AUTO) 5.8 % (13-45); MEAN CORPUSCULAR HGB CONC 31.6 g/dL (32.0-36.0); MEAN CORPUSCULAR VOLUME 86 fl (80-97); MONOCYTES % (AUTO) 3.3 % (3-13); RED BLOOD COUNT 3.74 10^6/uL (3.72-5.28); SEGMENTED NEUTROPHILS % (AUTO) 90.7 % (42-78); WHITE BLOOD COUNT 6.8 10^3/uL (4.0-10.5)
[2016-07-08] MEDS: LANSOPRAZOLE 15 MG TAB.RAP.DR PO SCH (05:30)
[2016-07-08 05:36] LABS: ANION GAP 8 (5-19); BLOOD UREA NITROGEN 32 mg/dL (7-20); CARBON DIOXIDE 30 mmol/L (22-30); CHLORIDE 97 mmol/L (98-107); CREATININE RESULT 1.03 mg/dL (0.52-1.25); GLUCOSE 120 mg/dL (75-110); SODIUM 134.5 mmol/L (137-145)
--- NOTE | 2016-07-08 08:53 | PDOC PROGRESS REPORT ---
Subjective Progress Note for:: 07/08/16 Subjective:: Patient states her shortness of breath is much improved from yesterday. Patient denies fever, chills, headache, new focal weakness, chest pain, abdominal pain, nausea, vomiting, diarrhea, constipation. Physical Exam Vital Signs: Temp Pulse Resp BP Pulse Ox 97.5 F 83 20 138/62 H 99 07/08/16 07:38 07/08/16 07:38 07/08/16 07:38 07/08/16 07:38 07/08/16 07:38 Intake & Output 07/07/16 07/08/16 07/09/16 06:59 06:59 06:59 Intake Total 2925 480 Output Total 0 Balance 2925 480 Weight 58.9 kg 59.4 kg GENERAL: Frail, elderly HEENT: Conjunctiva clear, nonicteric, moist mucous membranes, no JVD, midline trachea RESPIRATORY: Clear to auscultation bilaterally CARDIAC: Regular rate and rhythm, no murmurs/gallops/rubs ABDOMEN: Soft, nondistended, nontender, positive bowel sounds, no rebound, no guarding EXTREMETIES: No edema, cyanosis, clubbing NEUROLOGIC: Alert, oriented to person/place/time, CN's grossly intact, no focal deficits SKIN: No rash, wounds PSYCH: Depressed mood, flat affect Results Laboratory Results: 07/08/16 04:14 07/08/16 04:14 07/08/16 07/08/16 04:14 04:14 WBC 6.8 RBC 3.74 Hgb 10.1 L Hct 32.1 L MCV 86 MCH 27.0 MCHC 31.6 L RDW 21.0 H Plt Count 235 Seg Neutrophils % 90.7 H Lymphocytes % 5.8 L Monocytes % 3.3 Eosinophils % 0.1 Basophils % 0.1 Absolute Neutrophils 6.2 Absolute Lymphocytes 0.4 L Absolute Monocytes 0.2 Absolute Eosinophils 0.0 Absolute Basophils 0.0 Sodium 134.5 L Potassium 5.0 D Chloride 97 L Carbon Dioxide 30 Anion Gap 8 BUN 32 H Creatinine 1.03 Est GFR ( Amer) > 60 Est GFR (Non-Af Amer) 52 L Glucose 120 H Calcium 9.0 07/04/16 07/04/16 07/04/16 07:32 07:32 13:25 Creatine Kinase 94 101 CK-MB (CK-2) 5.39 H Troponin I 0.166 07/04/16 07/04/16 07/04/16 13:25 19:50 19:50 Creatine Kinase 108 CK-MB (CK-2) 5.95 H 5.30 H Troponin I 0.182 0.182 Impressions: Chest X-Ray 07/03/16 22:56 IMPRESSION: Left basilar airspace disease -effusion. Assessment & Plan - Diagnosis (1) Acute and chronic respiratory failure with hypoxia Is this a current diagnosis for this admission?: YesPlan: Continue oxygen supplementation. Patient has home oxygen in place. (2) Pneumonia Qualifiers: Pneumonia type: due to unspecified organism Laterality: left Lung location: unspecified part of lung Qualified Code(s): J18.9 - Pneumonia, unspecified organism Is this a current diagnosis for this admission?: YesPlan: Continue oral doxycycline until 07/15/2016. Likely bacterial. (3) COPD (chronic obstructive pulmonary disease) Qualifiers: COPD type: COPD with acute exacerbation Qualified Code(s): J44.1 - Chronic obstructive pulmonary disease with (acute) exacerbation Is this a current diagnosis for this admission?: YesPlan: Continue prednisone 40 mg daily and taper off as tolerated. Continue duo nebs every 4 hours when necessary. (4) Lung cancer Is this a current diagnosis for this admission?: YesPlan: According to patient's daughter patient has been evaluated for bilateral lung masses by her primary care provider Dr. Dee and pulmonary medicine physician Dr. Blank Womack at [facility]. Patient had unsuccessful/nondiagnostic biopsy in decision was made to not pursue bronchoscopy secondary to poor clinical status and age. Decision was made to not pursue any treatment for this issue. Patient and family were told that she had stage IV lung malignancy, but it seemed to be the slow growing kind and not small cell lung cancer. Given these findings and patient's poor overall status secondary to advanced COPD and age she is appropriate for hospice. I have had this discussion with patient and patient's daughter who is at the bedside. They agree. They request [facility]. Hopefully we can arrange hospice services in the next 1-2 days of discharge patient home. (5) Anemia Is this a current diagnosis for this admission?: YesPlan: Likely related to malignancy. H&H stable posttransfusion 2 units PRBC this admission. (6) Atrial flutter Qualifiers: Atrial flutter type: unspecified Qualified Code(s): I48.92 - Unspecified atrial flutter Is this a current diagnosis for this admission?: Yes (7) Elevated troponin Is this a current diagnosis for this admission?: Yes (8) Chronic kidney disease, stage 3 Is this a current diagnosis for this admission?: Yes - Time Time Spent with patient: 25-34 minutes
[2016-07-08] MEDS ORDERED: SODIUM CHLORIDE NASAL SPRAY 44 ML NASL PRN (08:55)
[2016-07-08] MEDS: PREDNISONE 20 MG TABLET PO SCH (09:03)
[2016-07-08] MEDS: CARVEDILOL 6.25 MG TABLET PO SCH ×2 (09:03→23:07)
[2016-07-08] MEDS: DILTIAZEM HCL 120 MG CAP.SR.24H PO SCH (09:04)
[2016-07-08] MEDS: ASPIRIN 81 MG TABLET, ENT COATED PO SCH (09:04)
[2016-07-08] MEDS: CYANOCOBALAMIN (VITAMIN B-12) 1,000 MCG TABLET PO SCH (09:04)
[2016-07-08] MEDS: SERTRALINE HCL 50 MG TABLET PO SCH (09:04)
[2016-07-08] MEDS: ASCORBIC ACID 500 MG TABLET PO SCH ×2 (09:05→18:33)
[2016-07-08] MEDS: FUROSEMIDE 20 MG TABLET PO SCH (09:06)
[2016-07-08] MEDS: FERROUS SULFATE 325 MG TABLET PO SCH ×2 (09:06→18:33)
[2016-07-08] MEDS: DOXYCYCLINE HYCLATE 100 MG TABLET PO SCH ×2 (09:06→23:07)
[2016-07-08] MEDS ORDERED: SODIUM CHLORIDE NASAL SPRAY 44 ML NASL SCH (11:00)
[2016-07-08] MEDS: IPRATROPIUM/ALBUTEROL 0.5-2.5 MG/3 ML AMPUL NEB PRN (13:43)
[2016-07-08] MEDS: ATORVASTATIN CALCIUM 80 MG TABLET PO SCH (23:07)
[2016-07-08] MEDS: POLYVINYL ALCOHOL 1.4% OPH SOLN 15 ML OU PRN (23:12)
[2016-07-09] MEDS: ALPRAZOLAM 0.25 MG TABLET PO PRN ×2 (00:59→09:18)
[2016-07-09] MEDS: LANSOPRAZOLE 15 MG TAB.RAP.DR PO SCH (05:03)
[2016-07-09] MEDS: ASPIRIN 81 MG TABLET, ENT COATED PO SCH (09:18)
[2016-07-09] MEDS: FUROSEMIDE 20 MG TABLET PO SCH (09:18)
[2016-07-09] MEDS: DILTIAZEM HCL 120 MG CAP.SR.24H PO SCH (09:19)
[2016-07-09] MEDS: DOXYCYCLINE HYCLATE 100 MG TABLET PO SCH (09:19)
[2016-07-09] MEDS: PREDNISONE 20 MG TABLET PO SCH (09:19)
[2016-07-09] MEDS: CYANOCOBALAMIN (VITAMIN B-12) 1,000 MCG TABLET PO SCH (09:19)
[2016-07-09] MEDS: FERROUS SULFATE 325 MG TABLET PO SCH ×2 (09:19→18:03)
[2016-07-09] MEDS: CARVEDILOL 6.25 MG TABLET PO SCH (09:19)
[2016-07-09] MEDS: POLYVINYL ALCOHOL 1.4% OPH SOLN 15 ML OU PRN (09:20)
[2016-07-09] MEDS: SERTRALINE HCL 50 MG TABLET PO SCH (09:20)
[2016-07-09] MEDS: ASCORBIC ACID 500 MG TABLET PO SCH ×2 (09:20→18:03)
[2016-07-09 10:52] VITALS: BP 122/74
--- NOTE | 2016-07-09 12:48 | PDOC DISCHARGE SUMMARY ---
General - Admit/Disc Date/PCP Admission Date/Primary Care Provider: 07/04/16 04:15 Discharge Date: 07/09/16 - Discharge Diagnosis (1) Acute and chronic respiratory failure with hypoxia Is this a current diagnosis for this admission?: Yes (2) Pneumonia Is this a current diagnosis for this admission?: Yes (3) COPD (chronic obstructive pulmonary disease) Is this a current diagnosis for this admission?: Yes (4) Lung cancer Is this a current diagnosis for this admission?: Yes (5) Anemia Is this a current diagnosis for this admission?: Yes (6) Atrial flutter Is this a current diagnosis for this admission?: Yes (7) Elevated troponin Is this a current diagnosis for this admission?: Yes (8) Chronic kidney disease, stage 3 Is this a current diagnosis for this admission?: Yes - Additional Information Resuscitation Status: Full Code Discharge Diet: Regular Discharge Activity: Activity As Tolerated Home Medications: Ascorbic Acid [Vitamin C] 500 mg PO BID 07/04/16 Aspirin [Aspirin EC] 81 mg PO DAILY 07/04/16 Atorvastatin Calcium [Lipitor 80 mg Tablet] 80 mg PO QHS 07/04/16 Bisacodyl [Dulcolax 5 mg Tablet] 10 mg PO HSP PRN 07/04/16 Cyanocobalamin (Vitamin B-12) [Vitamin B-12 1000 mcg Tablet] 1 tab PO DAILY 01/10 Esomeprazole Magnesium [Nexium] 20 mg PO DAILY 07/04/16 Ferrous Sulfate [Feosol 325 mg Tablet] 325 mg PO BID 07/04/16 Furosemide [Lasix] 20 mg PO DAILY 07/04/16 Sertraline HCl [Zoloft] 25 mg PO DAILY 07/04/16 Acetaminophen [Tylenol 325 mg Tablet] 650 mg PO Q4HP PRN tablet 07/09/16 Alprazolam [Xanax 0.25 mg Tablet] 0.25 mg PO QIDP PRN #30 tablet 07/09/16 Carvedilol [Coreg 6.25 mg Tablet] 6.25 mg PO Q12 #60 tablet 07/09/16 Diltiazem HCl [Cardizem Cd 120 mg Capsule] 120 mg PO DAILY #30 cap.sr.24h Doxycycline Hyclate [Vibramycin 100 mg Tablet] 100 mg PO Q12 #14 tablet Prednisone [Deltasone 20 mg Tablet] 20 mg PO DAILY #3 tablet 07/09/16 History of Present Illness Patient complains of: Shortness of breath History of Present Illness: KACEY HUANG is a 81 year old female with a past medical history of stage IV lung cancer without chemotherapy secondary to debility, COPD with home oxygen dependence. Brought to the emergency room with unclear duration of hypotension, atrial flutter and severe respiratory distress. Unable to provide history given acute on chronic respiratory failure. She is empirically started on BiPAP PCO2 of greater than 100. She started on empiric antibiotics and IV fluid challenge referred to the hospitalist for admission. Hospital Course Hospital Course: Patient was admitted for acute on chronic respiratory failure, pneumonia, COPD exacerbation, lung cancer. She was treated with steroids and antibiotics and has reached her baseline respiratory status. According to patient's daughter patient has been evaluated for bilateral lung masses by her primary care provider Dr. Dee and pulmonary medicine physician Dr. Blank Womack at [facility]. Patient had unsuccessful/nondiagnostic biopsy in decision was made to not pursue bronchoscopy secondary to poor clinical status and age. Decision was made to not pursue any treatment for this issue. Patient and family were told that she had stage IV lung malignancy, but it seemed to be the slow growing kind and not small cell lung cancer. Given these findings and patient's poor overall status secondary to advanced COPD and age she is appropriate for hospice. I have had this discussion with patient and patient's daughter who is at the bedside. They agree. They request [facility]. Patient was discharged to home hospice in stable condition. Physical Exam Vital Signs: Temp Pulse Resp BP Pulse Ox 97.5 F 81 16 122/74 100 07/09/16 10:49 07/09/16 12:21 07/09/16 12:21 07/09/16 10:49 07/09/16 12:21 Intake & Output 07/08/16 07/09/16 07/10/16 06:59 06:59 06:59 Intake Total 480 838 0 Output Total 0 Balance 480 838 0 Weight 59.4 kg 58.9 kg GENERAL: Frail, elderly HEENT: Conjunctiva clear, nonicteric, moist mucous membranes, no JVD, midline trachea RESPIRATORY: Clear to auscultation bilaterally CARDIAC: Regular rate and rhythm, no murmurs/gallops/rubs ABDOMEN: Soft, nondistended, nontender, positive bowel sounds, no rebound, no guarding EXTREMETIES: No edema, cyanosis, clubbing NEUROLOGIC: Alert, oriented to person/place/time, CN's grossly intact, no focal deficits SKIN: No rash, wounds PSYCH: Depressed mood, flat affect Results Laboratory Results: 07/08/16 04:14 07/08/16 04:14 07/04/16 07/04/16 07/04/16 07:32 07:32 13:25 Creatine Kinase 94 101 CK-MB (CK-2) 5.39 H Troponin I 0.166 07/04/16 07/04/16 07/04/16 13:25 19:50 19:50 Creatine Kinase 108 CK-MB (CK-2) 5.95 H 5.30 H Troponin I 0.182 0.182 Impressions: Chest X-Ray 07/03/16 22:56 IMPRESSION: Left basilar airspace disease -effusion. Qualifiers PATEINT BEING DISCHARGED WITH ANY OF THE FOLLOWING DIAGNOSIS?: No Plan Time Spent: Less than 30 Minutes
== END 2016-07-09 17:50 | disposition hospice, home (50) | DRG 189 ==
LOC: ER 22:49 → EH 07-04 04:15 → UNDOADMIN 07-04 04:21 → EH 07-04 04:21 → 3N 07-04 11:38
PROVIDERS: ADMIT Internal Medicine; ATTEND Internal Medicine
PROC: 30233N1 Transfusion of Nonautologous Red Blood Cells into Peripheral Vein, Percutaneous Approach (ICD-10-PCS; principal; 2016-07-06)
DX: J96.21 Acute and chronic respiratory failure with hypoxia (principal); J18.9 Pneumonia, unspecified organism; J44.0 Chronic obstructive pulmonary disease with (acute) lower respiratory infection; J44.1 Chronic obstructive pulmonary disease with (acute) exacerbation; I48.92 Unspecified atrial flutter; C34.92 Malignant neoplasm of unspecified part of left bronchus or lung; C34.91 Malignant neoplasm of unspecified part of right bronchus or lung; R77.8 Other specified abnormalities of plasma proteins; D64.9 Anemia, unspecified; N18.3 Chronic kidney disease, stage 3 (moderate); Z99.81 Dependence on supplemental oxygen; Z87.891 Personal history of nicotine dependence; Z88.2 Allergy status to sulfonamides
CPT/HCPCS: 36415; 36430; 71010; 80048; 80053; 82533; 82550; 82553; 82803; 84484; 85025; 85027; 86850; 86900; 86901; 86920; 87040; 93005; 93010; 94640; 94660; 96365; 96375; 96376; 99285; G8978-GP; G8979-GP; J0456; J0696; J1644; J1720; J1940; J2543; J3370; J3475; J3490; J7030; J7060; J7512; J7620; P9016